=== PATIENT | male | born 1990 | race Caucasian/White ===

== ENCOUNTER 2017-08-04 19:49 | Emergency (ER) | payer OTHER ==
[~2017-08-04] VITALS: Ht 182.9 cm; Wt 63.5 kg
[2017-08-04] MEDS ORDERED: TDAP DIPH,PERTUSS,TET VAC/PF 0.5 ML DISP.SYRIN IM ONE ×2 (22:00→22:10)
[2017-08-04] MEDS ORDERED: HYDROMORPHONE 1 MG/1 ML DISP.SYRIN IM ONE ×2 (22:00→23:00)
[2017-08-04] MEDS ORDERED: NEOMY/BACITRA/POLYMYXIN B OINT UD PACKET TP ONE ×2 (22:00→22:10)
[2017-08-04] MEDS ORDERED: ONDANSETRON 4 MG/2 ML VIAL ONE (22:00)
[2017-08-04] MEDS ORDERED: HYDROMORPHONE 2 MG/1 ML DISP.SYRIN ONE ×2 (22:00→23:06)
[2017-08-04] MEDS ORDERED: ONDANSETRON 4 MG/2 ML VIAL IM ONE (22:00)
[2017-08-04] MEDS ORDERED: IBUPROFEN 600 MG TABLET PO ONE (22:45)
[2017-08-04] MEDS ORDERED: IBUPROFEN 600 MG TABLET ONE (22:54)
--- NOTE | 2017-08-04 22:56 | NUR ---
Patient discharged to home in stable conditon. Written and verbal after care instructions given. Patient verbalizes understanding of instructions.
[2017-08-04 22:57] VITALS: BP 148/78
[2017-08-04] MEDS ORDERED: ONDANSETRON ODT 4 MG TAB.RAPDIS SL ONE (23:00)
[2017-08-04] MEDS ORDERED: ONDANSETRON ODT 4 MG TAB.RAPDIS ONE (23:05)
== END 2017-08-04 22:59 | disposition home or self-care (01) ==
LOC: ER 19:49
DX: S61.002A Unspecified open wound of left thumb without damage to nail, initial encounter (principal); W22.03XA Walked into furniture, initial encounter; Y93.89 Activity, other specified; Y92.89 Other specified places as the place of occurrence of the external cause; Y99.8 Other external cause status
CPT/HCPCS: 73140; 90715; A4663; J1170; J2405; Q0162